=== PATIENT | female | born 1950 | race Two or more races ===

== ENCOUNTER → 2021-05-30 | Day surgery (SDC) | payer BC ==
[~2021-05-30] MED LIST: LIDOCAINE 1%/EPI 1:100,000 20 ML VIAL. INJ ONE; LIDOCAINE 1%/EPI 1:100,000 20 ML VIAL. ONE
--- NOTE | 2021-05-30 11:32 | PDOC4 ---
Operative Note Operative Note Date: May 302020 at 1130 Preoperative diagnosis: Skin lesion right lower extremity Postoperative diagnosis: Same Procedure: Excision of skin lesion right lower extremity Surgeon: Raul Specimen: Mass right lower extremity Dictation: Patient is a 70-year-old female with complaints of an enlarging mass on her right lower extremity that bleeds at times has been present for several years. Procedure of excision was explained to the patient in detail risk benefits were also discussed including bleeding or infection. Patient gave both verbal and written consent to have the procedure performed. Patient was taken to the minors room placed in the supine position the area around the mass was prepped and draped in usual sterile fashion using ChloraPrep. Area around the mass was injected with 1% lidocaine with epinephrine the mass size 1.75 cm and was sharply excised using a 15 blade scalpel circumferentially with a 2 cm margin. Mass was sent for pathology the wound was closed in a single layer 4-0 subcuticular Monocryl Mastisol Steri-Strips and island dressings were applied. Patient tolerated procedure well was discharged home in stable condition. All sponge instrument needle counts listed as correct estimated blood loss less than 5 mL DANYA AVENDAÑO MD May 30, 2021 11:32
--- NOTE | 2021-05-30 11:34 | DISCH ---
DISCHARGE INSTRUCTIONS Condition on Discharge Condition on Discharge: Stable Activity After Discharge Activity Instructions for Disc: No restrictions Diet after Discharge Diet after Discharge: Regular Wound Incision Care Other wound/incision instructi: May shower in 24 hours Contacting the after DC Call your doctor for: If your condition worsens Follow-Up Follow up with: Dr. Avendaño in 2 weeks DANYA AVENDAÑO MD May 30, 2021 11:34
--- NOTE | 2021-06-01 14:23 | PATHOLOGY ---
[facility] Accession Number: [id number] . 01 Material submitted: . leg - RIGHT LEG SKIN LESION. Modifiers: right . 01 Clinical history: . EXCISION RIGHT LEG SKIN LESION . 02 Diagnosis: Skin and subcutaneous tissue, right leg lesion excision: - Seborrheic keratosis, traumatized and chronically inflamed. LBQ 06/01/2021 1022 Local . 02 Comment: There is no evidence of malignancy. (JPM/db; 06/01/2021) . 02 Electronically signed: . John Whittaker MD, Pathologist NPI- [id number] . 01 Gross description: . Received in formalin labeled "Shaneka Gamino" is an unoriented ellipse of skin measuring 1.6 x 0.8 x 0.8 cm. The skin surface displays a well-defined, irregular in contour, flaky, and dark brown lesion measuring 0.8 x 0.7 x 0.3 cm. The site is not stated on the specimen container. The site is stated on the requisition as "right leg skin lesion". The margin is inked and the specimen is sectioned into 7 pieces. The specimen is submitted entirely in A1 through A2, with the tips in the last cassette. ([facility]; 05/30/2021) [facility] 05/30/2021 1558 Local . 02 Pathologist provided ICD-10: L82.0 . 02 CPT . 628432 Specimen Comment: A courtesy copy of this report has been sent to [phone] Specimen Comment: Report sent to Performed at: [address], [place], [place] [id number] MD Jesus Avila MD Phone: [phone] Performed at: [address] [id number] MD John Whittaker MD Phone: [phone]
== END | disposition home or self-care (01) ==
LOC: SURG 10:17
PROVIDERS: ATTEND Surgery
DX: L82.0 Inflamed seborrheic keratosis (principal); Z79.899 Other long term (current) drug therapy
CPT/HCPCS: 11404; 88305; J3490; 17000